=== PATIENT | female | born 1995 | race Caucasian/White ===

== ENCOUNTER 2024-07-29 15:42 | Outpatient (CLI) | payer BC, SELFPAY ==
[2024-07-29 16:12] LABS: Add Urine Microscopic? NO; Appearance Urine Clear (Clear); Bilirubin Urine Negative (Negative); Blood Urine Negative (Negative); Color Urine Yellow (Yellow); Glucose Urine UA Negative (Negative); Ketones Urine Negative (Negative); Leukocyte Esterase Ur Negative LEU/UL (Negative); Nitrate Urine Negative (Negative); Protein Urine Negative (Negative); Specific Grav Ur 1.009 (1.001-1.035); Urobilinogen Urine 0.2 mg/dL (<2.0); pH Urine 5.5 (5.0-9.0)
== END 2024-07-29 15:43 | disposition home or self-care (01) ==
LOC: ANHLAB 15:44
PROVIDERS: PCP Physician Assistant; Visit Provider Obstetrics & Gynecology
DX: R30.0 Dysuria (principal)
CPT/HCPCS: 81003; 87086

== ENCOUNTER 2025-03-18 09:07 | Outpatient (CLI) | payer BC, SELFPAY ==
--- NOTE | ~2025-03-18 | MMUS_ITS ---
EXAMINATION: US breast RT complete, MM diagnostic maximo RT w juan INDICATION: 29-year old female; presents for evaluation of 2 palpable lumps in the right breast. COMPARISON: Baseline TECHNIQUE: Targeted ultrasound of the palpable lumps was completed. Digital breast tomosynthesis True lateral and spot compression CC and MLO views of the RIGHT breast were obtained with computer-aided detection to assist in interpretation of the study. Radiopaque marker placed over the palpable areas MAMMOGRAM FINDINGS: The breasts are heterogeneously dense, which may obscure small masses. There is no focal dominant mass, architectural distortion or suspicious microcalcifications identifie d. No mammographic abnormality correlates to the radiopaque skin markers. RIGHT BREAST ULTRASOUND FINDINGS: Targeted evaluation of the palpable concern identified by the patient was completed. There is a 0.42 x 0.42 x 0.32 cm superficial anechoic circumscribed mass at 8:00 location 2 cm from t he nipple in the RIGHT breast that correlates to a palpable lump identified by the patient. Targeted sonographic evaluation of the additional palpable area at 4:00 location showed normal fibrog landular tissue without a suspicious solid or cystic mass. IMPRESSION: Benign RIGHT breast cyst correlates to palpable lump at 8:00 location. No further investigation neces olayinka. No mammographic or sonographic abnormality correlates to the additional palpable area at 4:00 locatio n. RECOMMENDATION: Medical management of patient's palpable lumps. BI-RADS 2, BENIGN Reviewed, dictated and finalized at location B. IMPRESSION: Benign RIGHT breast cyst correlates to palpable lump at 8:00 location. No furth er investigation necessary. No mammographic or sonographic abnormality correlates to the additional palpabl e area at 4:00 location. RECOMMENDATION: Medical management of patient's palpable lumps. BI-RADS 2, BENIGN
== END 2025-03-18 09:08 | disposition home or self-care (01) ==
LOC: MICIMG 09:08
PROVIDERS: PCP Physician Assistant; Visit Provider Obstetrics & Gynecology
DX: N63.14 Unspecified lump in the right breast, lower inner quadrant (principal)
CPT/HCPCS: 76641; 77061; 77065; G0279